=== PATIENT | male | born 1940 ===

== ENCOUNTER 2018-09-15 13:43 | Emergency (ER) | payer OTHER ==
[~2018-09-15] VITALS: Ht 180.3 cm; Wt 72.6 kg
[~2018-09-15 13:43] MED LIST: KALETRA PO; METFORMIN HCL500 MG PO; TRUVADA TABLET1 TAB PO
[2018-09-15] MEDS ORDERED: VASOTEC5 MG (14:07)
[2018-09-15] MEDS ORDERED: TOUJEO SOL300 UNIT/1 (14:07)
[2018-09-15] MEDS ORDERED: GLIMEPIRIDE4 MG (14:07)
[2018-09-15] MEDS ORDERED: JANUMET 50-1,01 EACH (14:08)
== END 2018-09-15 22:24 | disposition home or self-care (01) ==
LOC: ER 13:43
DX: A08.8 Other specified intestinal infections (principal); E86.0 Dehydration

== ENCOUNTER 2019-04-11 17:32 | Emergency (ER) | payer OTHER ==
[~2019-04-11] VITALS: Ht 180.3 cm; Wt 70.3 kg
[~2019-04-11 17:32] MED LIST changes: +GLIMEPIRIDE4 MG; +JANUMET 50-1,01 EACH; +TOUJEO SOL300 UNIT/1; +VASOTEC5 MG
[2019-04-11] MEDS ORDERED: [UNRECOGNIZED DRUG - OTHER] PO (17:48)
[2019-04-11] MEDS ORDERED: TRUVADA 100 MG1 EACH (17:48)
== END 2019-04-11 21:40 | disposition home or self-care (01) ==
LOC: ER 17:32
DX: L97.829 Non-pressure chronic ulcer of other part of left lower leg with unspecified severity (principal)